=== PATIENT | female | born 1970 | race Caucasian/White ===

== ENCOUNTER 2021-12-07 11:54 | Day surgery (SDC) | payer OTHER ==
[2021-12-07] MEDS ORDERED: Marcaine Mpf 0.5% Vial 30 Ml IJ ONE (11:55)
[2021-12-07] MEDS ORDERED: Sodium Chloride 0.9(Preservative Free) 10 ML IJ ONE (11:55)
[2021-12-07] MEDS ORDERED: Depo-Medrol 40 MG/ML IM ONE (11:55)
[2021-12-07] MEDS ORDERED: DIPRIVAN 200 MG/20 ML IV ONE (14:01)
[2021-12-07] MEDS ORDERED: Lactated Ringers 1,000 ML IV ONE (15:48)
--- NOTE | 2021-12-07 19:26 | XRAY ---
Indication: Right L4-S1 transforaminal LAMONTE. Intraoperative fluoroscopy provided for 42 seconds. 5 digital spot image submitted for interpretation demonstrates posterior needle tips projecting over the expected right L4 and L5 nerve roots. Small amount of contrast injected for needle tip placement. Correlate with intraoperative findings/report.
--- NOTE | 2021-12-07 19:30 | XRAY ---
Indication: Right greater trochanter bursa injection. Intraoperative fluoroscopy provided for 6 seconds. Single digital spot image obtained prone submitted for interpretation demonstrates needle tip lateral to the right greater trochanter. Small amount of contrast injected for needle tip placement. Correlate with intraoperative findings/report.
--- NOTE | 2021-12-07 19:34 | XRAY ---
6 seconds of fluoroscopy was used in surgery for a right greater trochanteric bursa injection.
--- NOTE | 2021-12-07 19:35 | XRAY ---
42 seconds of fluoroscopy was used in surgery for a right L4-S1 transforaminal LAMONTE.
== END 2021-12-07 14:30 | disposition home or self-care (01) ==
LOC: SDC-PAIN 11:54
PROVIDERS: ATTEND Psychiatry & Neurology Pain Medicine
DX: M54.16 Radiculopathy, lumbar region (principal); M70.61 Trochanteric bursitis, right hip; Z79.899 Other long term (current) drug therapy
CPT/HCPCS: 20610; 64483; 64484; 72100; 73501; 77002; 77003; J1030; J2704; Q9966

== ENCOUNTER 2022-06-07 11:50 | Day surgery (SDC) | payer OTHER ==
[2022-06-07] MEDS ORDERED: Depo-Medrol 40 MG/ML IM ONE (11:51)
[2022-06-07] MEDS ORDERED: Sodium Chloride 0.9(Preservative Free) 10 ML IJ ONE (11:51)
[2022-06-07] MEDS ORDERED: BUPIVACAINE 0.5% VIAL IJ ONE (11:51)
[2022-06-07] MEDS ORDERED: DIPRIVAN 200 MG/20 ML IV ONE ×3 (13:46→14:15)
[2022-06-07] MEDS ORDERED: Lactated Ringers 1,000 ML IV ONE (14:49)
--- NOTE | 2022-06-07 14:55 | XRAY ---
Indication: Right greater trochanter bursa injection. Intraoperative fluoroscopy provided for 11 seconds. Single digital spot image obtained prone submitted for interpretation demonstrate needle tip lateral to the right greater trochanter. Small amount of contrast injected for needle tip placement. Correlate with intraoperative findings/report.
--- NOTE | 2022-06-07 14:55 | XRAY ---
Indication: Right L4-S1 transforaminal LAMONTE. Intraoperative fluoroscopy provided for 26 seconds. 4 digital spot images submitted for interpretation demonstrate posterior needle tips projecting over the expected right L4 and L5 nerve roots. Small amount of contrast injected for needle tip placement. Correlate with intraoperative findings/report.
--- NOTE | 2022-06-07 15:27 | XRAY ---
11 seconds of fluoroscopy was used in surgery for a right greater trochanteric bursa injection.
--- NOTE | 2022-06-07 15:27 | XRAY ---
26 seconds of fluoroscopy was used in surgery for a right L4-S1 transforaminal LAMONTE.
== END 2022-06-07 14:40 | disposition home or self-care (01) ==
LOC: SDC-PAIN 11:50
PROVIDERS: ATTEND Psychiatry & Neurology Pain Medicine
DX: M54.16 Radiculopathy, lumbar region (principal); M70.61 Trochanteric bursitis, right hip; Z79.899 Other long term (current) drug therapy
CPT/HCPCS: 20610; 64483; 64484; 72100; 73501; 77002; 77003; J1030; J2704; Q9966

== ENCOUNTER 2022-11-01 13:32 | Day surgery (SDC) | payer OTHER ==
[2022-11-01] MEDS ORDERED: LIDOCAINE HCL 2% 100 MG/5 ML IJ ONE (13:33)
[2022-11-01] MEDS ORDERED: Decadron 4 MG INJ IV ONE (13:33)
[2022-11-01] MEDS ORDERED: DIPRIVAN 200 MG/20 ML IV ONE (14:56)
[2022-11-01] MEDS ORDERED: Lactated Ringers 1,000 ML IV ONE (15:19)
--- NOTE | 2022-11-01 16:57 | XRAY ---
Indication: Right C2-C5 MBB. Intraoperative fluoroscopy provided for 24 seconds. 3 digital spot image submitted for interpretation demonstrates posterior needle tips projecting over the expected right C2-C5 nerve roots. Correlate with intraoperative findings/report. Incidental lower cervical fusion hardware.
--- NOTE | 2022-11-01 17:34 | XRAY ---
24 seconds of fluoroscopy was used in surgery for a right C2-C5 MBB.
== END 2022-11-01 15:27 | disposition home or self-care (01) ==
LOC: SDC-PAIN 13:32
PROVIDERS: ATTEND Psychiatry & Neurology Pain Medicine
DX: M47.812 Spondylosis without myelopathy or radiculopathy, cervical region (principal); Z79.899 Other long term (current) drug therapy
CPT/HCPCS: 64490; 64491; 64492; 72040; 77002; J1100; J2704

== ENCOUNTER 2023-01-10 11:32 | Day surgery (SDC) | payer OTHER ==
[2023-01-10] MEDS ORDERED: Decadron 4 MG INJ IV ONE (11:33)
[2023-01-10] MEDS ORDERED: BUPIVACAINE 0.5% VIAL IJ ONE (11:33)
[2023-01-10] MEDS ORDERED: DIPRIVAN 200 MG/20 ML IV ONE ×2 (13:20→13:34)
[2023-01-10] MEDS ORDERED: Versed 2 MG/2 ML Injection ONE (13:23)
[2023-01-10] MEDS ORDERED: Lactated Ringers 1,000 ML IV ONE (14:12)
--- NOTE | 2023-01-10 14:41 | XRAY ---
Indication: Left C2-C5 MBB. Intraoperative fluoroscopy provided for 32 seconds. 4 digital spot image submitted for interpretation demonstrates posterior needle tips projecting over the expected left C2-C5 nerve roots. Correlate with intraoperative findings/report. Incidental lower cervical fusion hardware.
--- NOTE | 2023-01-10 14:51 | XRAY ---
32 seconds of fluoroscopy was used in surgery for a left C2-C5 MBB.
== END 2023-01-10 13:57 | disposition home or self-care (01) ==
LOC: SDC-PAIN 11:32
PROVIDERS: ATTEND Psychiatry & Neurology Pain Medicine
DX: M47.812 Spondylosis without myelopathy or radiculopathy, cervical region (principal); Z79.899 Other long term (current) drug therapy
CPT/HCPCS: 64490; 64491; 64492; 72040; 77002; J1100; J2250; J2704

== ENCOUNTER → 2023-02-14 | Day surgery (SDC) | payer OTHER ==
[~2023-02-14] MED LIST: BUPIVACAINE 0.5% VIAL IJ ONE; DIPRIVAN 200 MG/20 ML IV ONE; Decadron 4 MG INJ IV ONE; Lactated Ringers 1,000 ML IV ONE
--- NOTE | 2023-02-14 18:44 | XRAY ---
Indication: Right C2-C5 MBB. Intraoperative fluoroscopy provided for 22 seconds. 2 digital spot image submitted for interpretation demonstrates posterior needle tips projecting over the expected right C2-C5 nerve roots. Correlate with intraoperative findings/report.
--- NOTE | 2023-02-15 10:03 | XRAY ---
22 seconds of fluoroscopy was used in surgery for a right C2-C5 MBB.
== END ==
LOC: SDC-PAIN 13:28
PROVIDERS: ATTEND Psychiatry & Neurology Pain Medicine
DX: M47.812 Spondylosis without myelopathy or radiculopathy, cervical region (principal)
CPT/HCPCS: 64490; 64491; 64492; 72040; 77002; J1100; J2704

== ENCOUNTER 2023-03-21 13:00 | Day surgery (SDC) | payer OTHER ==
[2023-03-21] MEDS ORDERED: BUPIVACAINE 0.5% VIAL IJ ONE (13:01)
[2023-03-21] MEDS ORDERED: Decadron 4 MG INJ IV ONE (13:01)
[2023-03-21] MEDS ORDERED: XYLOCAINE-MPF 1% 5ML SDV IJ ONE (13:01)
[2023-03-21] MEDS ORDERED: DIPRIVAN 200 MG/20 ML IV ONE ×2 (15:28→15:38)
[2023-03-21] MEDS ORDERED: Lactated Ringers 1,000 ML IV ONE (16:33)
--- NOTE | 2023-03-21 16:48 | XRAY ---
Indication: Left C2-C5 RFA. Intraoperative fluoroscopy provided for 34 seconds. 8 digital spot image submitted for interpretation demonstrates posterior needle tips projecting over the expected left and C2-C5 nerve roots. Correlate with intraoperative findings/report. Incidental lower cervical fusion hardware.
--- NOTE | 2023-03-21 16:56 | XRAY ---
34 seconds of fluoroscopy was used in surgery for a left C2-C5 RFA.
== END 2023-03-21 16:13 | disposition home or self-care (01) ==
LOC: SDC-PAIN 13:00
PROVIDERS: ATTEND Psychiatry & Neurology Pain Medicine
DX: M47.812 Spondylosis without myelopathy or radiculopathy, cervical region (principal)
CPT/HCPCS: 64633; 64634; 72040; 77002; J1100; J2704

== ENCOUNTER 2023-03-28 11:00 | Day surgery (SDC) | payer OTHER ==
[2023-03-28] MEDS ORDERED: XYLOCAINE-MPF 1% 5ML SDV IJ ONE (11:01)
[2023-03-28] MEDS ORDERED: Decadron 4 MG INJ IV ONE (11:01)
[2023-03-28] MEDS ORDERED: BUPIVACAINE 0.5% VIAL IJ ONE (11:01)
[2023-03-28] MEDS ORDERED: DIPRIVAN 200 MG/20 ML IV ONE ×2 (13:10→13:22)
[2023-03-28] MEDS ORDERED: Lactated Ringers 1,000 ML IV ONE (14:09)
--- NOTE | 2023-03-28 15:04 | XRAY ---
Indication: Right C2-C5 RFA. Intraoperative fluoroscopy provided for 50 seconds. 3 digital spot image submitted for interpretation demonstrates posterior needle tips projecting over the expected right C2-C5 nerve roots. Correlate with intraoperative findings/report. Incidental lower cervical fusion hardware.
--- NOTE | 2023-03-28 15:08 | XRAY ---
50 seconds of fluoroscopy was used in surgery for a right C2-C5 RFA.
== END 2023-03-28 13:47 | disposition home or self-care (01) ==
LOC: SDC-PAIN 11:00
PROVIDERS: ATTEND Psychiatry & Neurology Pain Medicine
DX: M47.812 Spondylosis without myelopathy or radiculopathy, cervical region (principal)
CPT/HCPCS: 64633; 64634; 72040; 77002; J1100; J2704